=== PATIENT | male | born 1960 | race Caucasian/White ===

== ENCOUNTER 2018-09-28 15:00 | Outpatient (RCR) | payer OTHER | END 2018-09-29 | LOC: PT 15:00 | PROVIDERS: ATTEND Specialist | DX: S13.4XXD Sprain of ligaments of cervical spine, subsequent encounter (principal); M54.2 Cervicalgia; M53.82 Other specified dorsopathies, cervical region ==

== ENCOUNTER 2018-10-02 15:00 | Outpatient (RCR) | payer OTHER | END 2018-10-30 | LOC: PT 15:00 | PROVIDERS: ATTEND Specialist | DX: S13.4XXD Sprain of ligaments of cervical spine, subsequent encounter (principal); M54.2 Cervicalgia; M62.81 Muscle weakness (generalized); M53.82 Other specified dorsopathies, cervical region ==